=== PATIENT | female | born 1995 | race Caucasian/White ===

== ENCOUNTER 2019-06-10 21:50 | Inpatient (IN) ==
[2019-06-10] MEDS ORDERED: MORPHINE IV ONE (22:32)
[2019-06-10] MEDS ORDERED: NS 1,000 ML IV ONE (22:32)
[2019-06-10] MEDS ORDERED: ZOFRAN IV ONE (22:32)
[2019-06-10 22:45] LABS: URINE SOURCE CLEAN CATCH
--- NOTE | 2019-06-10 22:50 | PROVIDER DOCUMENTATION ---
HPI-Abdominal Pain/GI Problem - General Chief Complaint: Flank Pain Stated Complaint: ABD PAIN Time Seen by Provider: 06/10/19 22:02 Source: patient Allergies/Adverse Reactions: Patient Allergies Allergy/AdvReac Type Severity Reaction Status Date / Time No Known Allergies Allergy Verified 06/10/19 22:55 - History of Present Illness-ABD Nature of Presenting Problems: Patient is a 23 yowf who complains of RLQ pain associated with nausea that began this afternoon. Denies vomiting, dysuria, diarrhea, or any other complaints. She is non-toxic in appearance. Pain Radiation: reports: no radiation Timing: reports: still present Last BM: this morning Dark Stools Present?: reports: none noticed Rectal Bleeding: reports: none Review of Systems - Adult - REVIEW OF SYSTEMS - ADULT Constitutional: reports: no symptoms reported. denies: chills, fever Eyes: reports: no symptoms reported Ears, Nose, Mouth & Throat: reports: no symptoms reported Cardiovascular: reports: no symptoms reported Respiratory: reports: no symptoms reported Gastrointestinal: reports: see HPI Genitourinary: reports: no symptoms reported Musculoskeletal: reports: no symptoms reported Integumentary: reports: no symptoms reported Neurological: reports: no symptoms reported Psychiatric: reports: no symptoms reported Endocrine: reports: no symptoms reported Hematologic/Lymphatic: reports: no symptoms reported Allergic/Immunologic: reports: no symptoms reported All Other Systems: Reviewed and Negative Past History - Adult - PAST MEDICAL HISTORY-ADULT Review of Records: reports: Nursing Assessment Review, Medications Reviewed, Social history reviewed & non-contributory. Major Childhood Illnesses: reports: denies history Cardiovascular: reports: denies history Respiratory: reports: denies history Gastrointestinal: reports: denies history Obstetrical/Gynecological: reports: denies history Genitourinary: reports: chronic UTI's Musculoskeletal: reports: denies history Neurological: reports: denies history Endocrine/Immune: reports: denies history Other Conditions: reports: denies history - PRIOR SURGERIES/PROCEDURES Surgical/Procedure History: reports: other ([place] teeth) - IMMUNIZATION STATUS Childhood Immunizations: See Nurse Assessment Flu Vaccine: See Nurse Assessment - FAMILY HISTORY Family History: reviewed, not pertinent - SOCIAL HISTORY Smoking: non-smoker Physical Exam-General - PHYSICAL EXAM-ADULT Initial Vital Signs Reviewed: Yes - CONSTITUTIONAL General Appearance: alert, no apparent distress. negative: lethargic, slow to respond - EYES Eyes: PERRL/EOMI, pink conjunctivae - HEAD, EARS, NOSE, MOUTH & THROAT HENMT: normocephalic/atraumatic, moist mucous membranes - NECK Neck: non-tender, full range of motion, supple, normal inspection - RESPIRATORY Respiratory: chest non-tender, lungs clear, normal breath sounds, no pleuratic chest pain, no respiratory distress, no accessory muscle use - CARDIOVASCULAR Cardiovascular: normal peripheral pulses, regular rate, rhythm, no gallop, no murmur - GASTROINTESTINAL (ABDOMEN) Abdominal Exam: normal bowel sounds, soft, no organomegaly, no pulsatile mass, tenderness (RLQ), McBurney's point tenderness (Positive rebound tenderness). negative: distended, rigid, rebound - MUSCULOSKELETAL Back Exam: normal inspection, no CVA tenderness Extremity: normal range of motion, non-tender, normal gait, normal inspection - SKIN Integumentary: normal color, warm/dry. negative: cyanosis, diaphoresis, jaundice, mottled, pallor - NEUROLOGIC Neurologic: grossly normal, no motor/sensory deficits - PSYCHIATRIC Psych/Mental Status: normal mood/affect, normal thought content, normal thought process, oriented x 3 Progress - PLAN OF CARE/RESULTS Progress/Plan/Lab Results: Vital Signs - 8 hr 06/10/19 22:05 Temperature 97.8 F Pulse Rate 97 H Respiratory Rate 16 Blood Pressure 87/61 O2 Sat by Pulse Oximetry 98 Bedside Urine ED: Urine Bedside Start: 06/10/19 22:32 Freq: NOW Status: Active Protocol: Activity Type Activity Date Activity User E-Sign Co-Sign Detail Recorded Client Recorded Date Recorded By Document 06/10/19 22:40 [id number] 06/10/19 22:41 [id number] 06/10/19 22:40 Point of Care [Bedside Point of Care] -Lot # [id number] - Results Negative -Control Line Visible? Yes Laboratory Results - last 24 hr 06/10/19 22:25 Urine Source CLEAN CATCH Orders Category Date Time Status ED: Urine Bedside NOW Care 06/10/19 22:32 Active NPO Diet 06/10/19 22:[address] ABD/PELVIS W/IV CONT ONLY [CT] Stat Exams 06/10/19 22:32 Ordered CBC WITH DIFF [HEME] Stat Lab 06/10/19 22:20 Results COMPREHENSIVE METABOLIC PANEL [CHEM] Stat Lab 06/10/19 22:20 Received LIPASE [CHEM] Stat Lab 06/10/19 22:20 Received UA NIMS W/REFLEX CULT [URINALYSIS] Stat Lab 06/10/19 22:25 Results 0.9% Sodium Chloride Inj [Ns] 1,000 ml Med 06/10/19 22:32 Active IV 999 mls/hr Morphine Med 06/10/19 22:32 Discontinued 4 mg IV NOW ONE Ondansetron [Zofran] Med 06/10/19 22:32 Discontinued 4 mg IV NOW ONE Result Diagrams: 06/10/19 22:20 06/10/19 22:20 - REASSESSMENT Reassessment #1 Time Reassessed: 00:50 Status: improving (Pain and nausea improved with meds. Discussed admission plan with pt who is in agreement. Aware she is to stay NPO.) - CT/MRI 1 CT Study: Abdomen, Pelvis (Impression: The appendix is not enlarged and there is no appendicolith. There is possible subtle adjacent periappendiceal inflammation versus averaging with adjacent bowel. Possibility of early acute appendicitis is not excluded. 2. The right ovary appears enlarged with nodular enhancement, which is nonspecific. This may be related to prominent adnexal veins.) - CONSULTS/PCP/HOSPITALIST Notification #1 *Consult/PCP/Hospitalist*: Dr. Valenzuela Time Discussed: 00:33 Reason/Comments: possible acute appendicitis Consult Disposition: Admit (States to admit to him, place on IV abx and he will see pt tomorrow.) Departure - Departure Date of Disposition Decision: 06/11/19 Time of Disposition Decision: 00:34 DIAGNOSIS: Appendicitis Qualifiers: Appendicitis type: acute appendicitis Acute appendicitis type: unspecified acute appendicitis type Qualified Code(s): K35.80 - Unspecified acute appendicitis Abdominal pain Qualifiers: Abdominal location: right lower quadrant Qualified Code(s): R10.31 - Right lower quadrant pain Disposition: ADMITTED INPATIENT 09 Certified Medical Emergency: Emergent Condition: Stable Referrals and Follow-Ups: None,PCP [Primary Care Provider] - - Critical Care Note This patient required my direct & personal management of CC.: No Attestation - Physician/ YURIY Attestation Patient care was provided by Advanced Practice Provider:: Yes Advanced Practice Provider:: Dm Sidhu Advanced Practice Provider documentation review:: The Mid-level provider documentation, treatment plan and medical decision making was reviewed by the physician who agrees with all treatment and medical decision making by the MLP. The physician spent face to face time with patient:: No Advanced Practice Provider documentation review:: Supervising physician onsite and consulted in the evaluation and care of this patient. The physician did not have a face to face encounter with the patient.
[2019-06-10 22:51] LABS: BASO# 0.05 X1000 (0.0-0.2); BASO% 0.6 % (0.0-0.8); EOS# 0.58 X1000 (0.0-0.7); EOS% 6.4 % (0.0-10.0); HEMATOCRIT 44.7 % (37.0-47.0); HEMOGLOBIN 14.9 g/dL (12.0-16.0); LYMPH# 4.05 X1000 (1.2-3.4); LYMPH% 44.7 % (20.5-51.1); MCH 29.9 PG (27-31); MCHC 33.3 g/dL (33-37); MCV 89.8 FL (81-99); MONO# 0.46 X1000 (0.11-0.59); MONO% 5.1 % (1.7-9.3); MPV 9.3 FL (7.4-10.4); NEUT# 3.92 X1000 (1.4-6.5); NEUT% 43.2 % (42.2-75.2); PLT 335 X1000 (130-400); RBC 4.98 XMIL (4.2-5.4); RDW 12.3 % (11.5-14.5); WBC 9.06 X1000 (4.8-10.8)
[2019-06-10 22:52] LABS: BILIRUBIN URINE NEGATIVE (NEGATIVE); BLOOD URINE NEGATIVE (NEGATIVE); COLOR YELLOW; GLUCOSE URINE NEGATIVE (NEGATIVE); KETONE URINE NEGATIVE (NEGATIVE); LEUKOCYTES URINE NEGATIVE (NEGATIVE); NITRITE URINE NEGATIVE (NEGATIVE); PROTEIN URINE NEGATIVE (NEGATIVE); SP GRAVITY URINE 1.013; TURBIDITY URINE CLEAR (CLEAR); UR EPITHELIAL CELLS <10 /HPF (<10); URINE BACTERIA 1+ /HPF; URINE RBC <10 /HPF (<10); URINE WBC <10 /HPF (<10); UROBILINOGEN URINE NORMAL (NORMAL)
[2019-06-10 23:09] LABS: AGAP 11; ALB/GLOB RATIO 1.6; ALBUMIN 4.2 g/dL (3.5-5.0); ALKALINE PHOSPHATASE 95 U/L (32-104); BUN 11 mg/dL (8-22); CALCIUM 9.8 mg/dL (8.8-10.2); CHLORIDE 102 mmol/L (98-107); COSMO 277; CREATININE 0.8 mg/dL (0.5-0.9); ESTIMATED GFR > 60; GLUCOSE 101 mg/dL (70-104); GOT 19 U/L (10-30); GPT 17 U/L (10-36); LIPASE 25 U/L (13-60); SODIUM 139 mmol/L (136-145); TCO2 26 mmol/L (25-35); TOTAL BILIRUBIN 0.27 mg/dL (0.20-1.00); TOTAL PROTEIN 6.8 g/dL (6.3-8.3)
[2019-06-11] MEDS ORDERED: ZOSYN 3.375 GM in NS 50 ML IV ONE (00:30)
[2019-06-11] MEDS ORDERED: ZOFRAN IV PRN (00:35)
[2019-06-11] MEDS ORDERED: D5 NS 1,000 ML IV ONE (00:38)
[2019-06-11] MEDS: MORPHINE IV PRN ×3 (01:53→17:13)
--- NOTE | 2019-06-11 07:11 | Diag Imaging Result Doc PS360 ---
EXAM: CT ABD/PELVIS W/IV CONT ONLY 06/10/2019 HISTORY: RLQ pain, rebound tenderness TECHNIQUE: This exam was performed using automated exposure control, adjustment of mA or kV according to patient size, and/or use of iterative reconstruction technique. COMMENT: The current study is compared with the previous examination of 10/09/2017. There is no evidence of acute disease in the visualized portion of the chest. There are no apparent gallstones. The liver, spleen, adrenal glands, and pancreas are stable in appearance. The kidneys are without evidence of hydronephrosis or mass. There is some prominence of mesenteric nodes. The aorta is not distended. Pelvis: The distal appendix is only slightly over 6 mm in diameter but there is some stranding in the fat surrounding the appendix suggesting inflammation. No discrete fluid collection is present. There is amount of free fluid in the cul-de-sac and above the urinary bladder. The endometrial stripe is somewhat thickened in the fundus measuring over 14 mm. These findings were not present on the previous study. There is an apparent corpus luteum in the right ovary and both ovaries are somewhat hypodense possibly representing multiple follicles. There is prominent vascular enhancement adjacent to both ovaries. The previous study, having been performed without contrast, did not demonstrate this. The urinary bladder is not distended. There is no evidence of significant adenopathy. The regional skeleton is stable in appearance. IMPRESSION: 1. The possibility of early appendicitis cannot be excluded and clinical correlation is recommended. 2. Free fluid in the pelvis and apparent vascular congestion. Thickened endometrium which may be physiologic. Electronically signed by Nicho Nunez 06/11/2019 7:09 AM
[2019-06-11] MEDS ORDERED: ZOSYN 3.375 GM in NS 50 ML IV SCH (08:00)
--- NOTE | 2019-06-11 08:24 | Diag Imaging Result Doc PS360 ---
EXAM: US TRANSVAGINAL NON-OB 06/11/2019 HISTORY: lower abdominal pain TECHNIQUE: Transabdominal and endovaginal scan. Attempts were made to visualize the appendix, but were unsuccessful. COMMENT: There is free fluid in the cul-de-sac. The fundal endometrium measures 1.3 cm in thickness. There are small follicles in both ovaries. There are no apparent masses. Color Doppler arterial flow is demonstrated bilaterally. IMPRESSION: Free pelvic fluid. Electronically signed by Nicho Nunez 06/11/2019 8:22 AM
--- NOTE | 2019-06-11 09:36 | HISTORY AND PHYSICAL ---
ADMITTING DIAGNOSIS: Abdominal pain. HISTORY OF PRESENT ILLNESS: A 23-year-old female presenting with right flank and right lower quadrant pain with some nausea that began the day prior to presentation. She was seen in the emergency department, had a CT scan which was not conclusive for appendicitis. The pain was mostly worsened when she walked and started all of a sudden. She has had a recent child and is about 2 weeks out from her last cycle. PAST MEDICAL HISTORY: None. PAST SURGICAL HISTORY: [place] teeth. SOCIAL HISTORY: Nonsmoker. ALLERGIES: None. HOME MEDICATIONS: None. FAMILY HISTORY: Reviewed with patient, noncontributory. REVIEW OF SYSTEMS: A full 14 systems reviewed and negative as specified in the HPI. PHYSICAL EXAMINATION: VITAL SIGNS: Patient is currently afebrile. Her vital signs are stable. GENERAL: No acute distress. HEENT: Normocephalic, atraumatic. Pupils equal, round, reactive to light. Mucous membranes moist. Oropharynx benign. NECK: Supple. Trachea midline. CARDIOVASCULAR: Regular rate and rhythm. LUNGS: Grossly clear. ABDOMEN: Soft. Some tenderness to palpation in the right lower quadrant. No rebound, tenderness. Some flank pain noted on the right side. Negative Rovsing's sign. Some suprapubic tenderness but no peritoneal signs. EXTREMITIES: Moves all extremities. NEUROLOGIC: Grossly intact. SKIN: No signs of jaundice. VASCULAR: All extremities perfused. LABORATORY DATA: White blood cell count is normal with no left shift. Hematocrit and platelet count are normal. CMP is essentially normal. Urinalysis is essentially normal. IMAGING: CT scan independently reviewed and radiology report reviewed. I do not see any real stranding down by her appendix to suggest appendicitis. I am not convinced that she has appendicitis on CT scan, but official report is pending. ASSESSMENT AND PLAN: A 23-year-old female with abdominal pain. Abdominal pain. At this time, I am not convinced that she has appendicitis but we will keep her on antibiotics just to play it safe. She does not have a leukocytosis or a left shift. There is some suggestion of an issue with her ovary so I will get a transvaginal ultrasound. If there is an issue with the ovary, may have Gynecology see her, but at this time, we will hold off on any surgical intervention until we have ruled out other potential causes. Will discuss further with radiologist later today. cc: Alex Valenzuela MD
[2019-06-11] MEDS ORDERED: DIPRIVAN 1% ONE (12:01)
[2019-06-11] MEDS ORDERED: VERSED ONE (12:01)
[2019-06-11] MEDS ORDERED: ROBINUL ONE ×2 (12:06→13:03)
[2019-06-11] MEDS ORDERED: LR 1,000 ML ONE (12:40)
[2019-06-11] MEDS ORDERED: MARCAINE 0.25% PF/EPI 1:200,000 ONE (12:40)
[2019-06-11] MEDS ORDERED: ZEMURON ONE (12:45)
[2019-06-11] MEDS ORDERED: TORADOL ONE (12:48)
[2019-06-11] MEDS ORDERED: DECADRON ONE (12:48)
[2019-06-11] MEDS ORDERED: ZOFRAN ONE (12:48)
[2019-06-11] MEDS ORDERED: FENTANYL ONE (12:49)
[2019-06-11] MEDS ORDERED: NEOSTIGMINE ONE (13:03)
[2019-06-11] MEDS: DILAUDID ONE ×2 (13:43→13:48)
[2019-06-11] MEDS ORDERED: NORCO-10 PO PRN (14:16)
--- NOTE | 2019-06-11 17:41 | GENERAL SURGERY PROGRESS NOTE ---
DATE: 06/11/2019 Reviewed images with the radiologist, still not conclusive. The patient is still hurting. Discussed with her the options of given her diet versus taking her to the operating room and taking her appendix out. She wants to proceed with the appendectomy. Discussed with her the risks, benefits, alternatives. She wants to proceed. Risks include, but not limited to, bleeding, infection, risk of anesthesia, risk of anastomotic issue, and injury to other organs. She voiced understanding and wishes to proceed. cc: Alex Valenzuela MD
--- NOTE | 2019-06-11 19:57 | OPERATIVE NOTE ---
PROCEDURE DATE: 06/11/2019 PREOPERATIVE DIAGNOSIS: Right lower quadrant pain. POSTOPERATIVE DIAGNOSES: 1. Possible early appendicitis. 2. Right ovarian benign-looking cyst. PROCEDURE: Laparoscopic appendectomy. SURGEON: Alex Valenzuela MD. RESUME SPECIALIST: None. ANESTHESIA: General endotracheal. FINDINGS: Right ovarian cyst and possible early appendicitis. COMPLICATIONS: None at the time of this dictation. ESTIMATED BLOOD LOSS: 5 mL. SPECIMEN REMOVED: Appendix. BRIEF HISTORY: A 23-year-old female who presented with right lower quadrant pain. She had a CT scan that showed possible appendicitis. She did not have a leukocytosis or a left shift, but she did have pain in the right lower quadrant. Given this, we gave her the option of medical management versus diagnostic laparoscopy with the appendectomy. She wanted to proceed with appendectomy. The risks, benefits, and alternatives were discussed and documented in the chart, and all questions answered. DESCRIPTION OF PROCEDURE: After informed consent was obtained, patient was brought to the operative theater, transferred to the operative table, placed in supine position. General endotracheal anesthesia was then performed without complication. A formal time-out was then performed, confirming patient, date, procedure. All were in agreement. At that time, attention was turned to the abdomen. Using Optiview technique, we inserted a 12 mm trocar at the infraumbilical location, connected insufflation, pneumoperitoneum was achieved. Under direct visualization, we placed 2 more trocars, one 5 mm in right upper quadrant, one 5 mm in left lower quadrant. Using these, the abdomen was investigated. She did have a right ovarian cyst, but it looked benign. There was some benign-appearing fluid down in her pelvis. The left ovary appeared to be normal. We evaluated the appendix. It appeared to be possibly early appendicitis, but given the diagnostic findings, it was felt that she probably would benefit from appendectomy. We elevated the appendix, made a window in the base of the mesoappendix, used the LigaSure to come across the mesentery of the appendix and then fired a stapler across the base of the appendix with good results. We brought it out through the infraumbilical incision. We then irrigated out the abdomen until the suction fluid was clear. We reexamined the staple line and it was in good position. No drainage of succus or stool. No injury to surrounding tissues. We closed the infraumbilical incision with 0 Vicryl on a Kg-Karissa device, removed all trocars, disconnected insufflation. Pneumoperitoneum was released. All skin incisions were closed with 4- 0 Monocryl. Patient tolerated the procedure well. We will watch her overnight and discharge her tomorrow. cc: Alex Valenzuela MD
[2019-06-12 03:29] VITALS: BP 99/45
--- NOTE | 2019-06-12 07:10 | GENERAL SURGERY PROGRESS NOTE ---
DATE: 06/12/2019 Patient seems to be doing okay. She is a little bit better, but she is appropriately tender. She has been doing well through the course of the night. We will discharge her home this morning. cc: Alex Valenzuela MD
== END 2019-06-12 08:54 | disposition home or self-care (01) | DRG 343 ==
LOC: ED 21:50 → 1N 06-11 01:40
PROVIDERS: ADMIT Surgery; ATTEND Surgery